=== PATIENT | male | born 1935 | race African-American/Black ===

== ENCOUNTER 2018-08-20 05:24 | Inpatient (IN) | payer OTHER ==
[2018-08-20] MEDS: ETOMIDATE 20 MG INJ IV (05:25)
[2018-08-20] MEDS: ROCURONIUM 50 MG INJ IV (05:27)
[2018-08-20] MEDS: PROPOFOL 100 ML IV ×2 (05:32→05:55)
[2018-08-20 05:45] LABS: WHITE BLOOD COUNT 6.6 10^3/ul (4.8-10.8)
[2018-08-20 05:45] LABS: ABNORMAL IP MESSAGE 1; HEMATOCRIT 50.9 % (42.0-52.0); HEMOGLOBIN 16.2 g/dl (14.0-18.0); MEAN CORPUSCULAR HEMOGLOBIN 29.3 pg (29.0-33.0); MEAN CORPUSCULAR HGB CONC 31.8 g/dl (32.0-37.0); MEAN CORPUSCULAR VOLUME 92.2 fl (82.0-101.0); MEAN PLATELET VOLUME 12.1 fl (7.4-10.4); PLATELET COUNT 122 10^3/UL (140-415); POSITIVE DIFF @See below; RED BLOOD COUNT 5.52 10^6/ul (4.70-6.10)
[2018-08-20 05:51] LABS: ADD MAN DIFF? YES
[2018-08-20] MEDS: SODIUM CHLORIDE 0.9% 1L BAG IV* (05:51)
[2018-08-20] MEDS: SOD CHLORIDE 0.9% 1,000 ML IV (05:52)
[2018-08-20] MEDS: CEFEPIME 2GM/50 ML (PMX) 50 ML IVPB ×2 (05:54→13:19)
[2018-08-20] MEDS: FENTAnyl 50 MCG/ML VIAL IV (06:03)
[2018-08-20] MEDS: FENTAnyl (DRIP) 1000 mcg/100mL 100 ML IV ×2 (06:04→18:00)
[2018-08-20] MEDS: VANCOMYCIN 1 GM (PMX) 250 ML IVPB (06:05)
[2018-08-20 06:08] LABS: ALANINE AMINOTRANSFERASE 8 IU/L (13-69); ALBUMIN 3.8 g/dl (3.3-4.9); ALBUMIN/GLOBULIN RATIO 0.97; ALKALINE PHOSPHATASE 100 IU/L (42-121); ANION GAP 19 (5-13); ASPARTATE AMINO TRANSFERASE 24 IU/L (15-46); BILIRUBIN,INDIRECT 0.5 mg/dl (0-1.1); BILIRUBIN,TOTAL 0.5 mg/dl (0.2-1.3); BLOOD UREA NITROGEN 91 mg/dl (7-20); CARBON DIOXIDE 28 mmol/L (21-31); CHLORIDE 113 mmol/L (97-110); CREATININE 1.81 mg/dl (0.61-1.24); POTASSIUM 4.3 mmol/L (3.5-5.1); SODIUM 160 mmol/L (135-144); TOTAL PROTEIN 7.7 g/dl (6.1-8.1)
[2018-08-20 06:11] LABS: AADO2 Arterial 475.5 mmHg (7.0-24.0); Allen Test ACCEPTAB; Arterial Base Excess -1.7 mmol/L (-3.0-3); Arterial Blood Gas Oxygen Sat 98.9 mmHG (95.0-100.0); Arterial COHb 0.3 % (0.0-3.0); Arterial Fraction of Oxyhgb 98.3 % (93.0-99.0); Arterial MetHb 0.3 % (0.0-1.5); Arterial pCO2 39.2 mmhg (35-45); INR 1.41; MODE VENT - AC; PROTIME 17.4 Sec (11.9-14.9); PT RATIO 1.4; Site Left Radial
[2018-08-20 06:12] LABS: GLUCOSE 492 mg/dl (70-220); PARTIAL THROMBOPLASTIN TIME 26.8 Sec (23.0-35.0)
[2018-08-20 06:21] LABS: TROPONIN-I 0.051 ng/ml (0.000-0.120)
[2018-08-20] MEDS ORDERED: NALOXONE 2 MG SYG (07:00)
[2018-08-20 07:04] LABS: ANISOCYTOSIS 1+ (0-0); BAND NEUTROPHILS #M 0.3 10^3/ul (0.0-0.6); BAND NEUTROPHILS % (M) 5 % (0-4); GIANT THROMBO% (M) 5 % (0-0); LYMPHOCYTES #M 0.8 10^3/ul (0.8-2.9); LYMPHOCYTES % (M) 13 % (15-51); MICROCYTOSIS 1+ (0-0); MONOCYTE #M 1.3 10^3/ul (0.3-0.9); MONOCYTES % (M) 21 % (0-11); PLATELET ESTIMATE DECREASED; POLYCHROMASIA 2+ (0-0); SEGMENTED NEUTROPHILS (M) % 61 % (39-77); SMUDGE%M 3 % (0-0)
[2018-08-20 08:29] LABS: LACTIC ACID 2.6 mmol/L (0.5-2.0)
[2018-08-20 08:31] LABS: PHOSPHORUS 3.9 mg/dl (2.5-4.9)
[2018-08-20 08:31] LABS: MAGNESIUM 3.1 mg/dl (1.7-2.5)
[2018-08-20] MEDS ORDERED: ONDANSETRON 4 MG INJ IV (11:00)
[2018-08-20 11:09] LABS: LACTIC ACID 2.6 mmol/L (0.5-2.0)
[2018-08-20] MEDS ORDERED: ACCU-CHEK XX (11:30)
[2018-08-20] MEDS ORDERED: GLUCOSE GEL 15 GRAM TUBE BUCCAL (11:30)
[2018-08-20] MEDS ORDERED: GLUCAGON 1 MG INJ IM (11:30)
[2018-08-20] MEDS ORDERED: VANCOMYCIN IV PER PHARMACY XX (11:30)
[2018-08-20] MEDS ORDERED: DEXTROSE 50% 50 ML SYRINGE IV ×4 (11:30)
[2018-08-20] MEDS ORDERED: GLUCOSE GEL 15 GRAM TUBE PO ×2 (11:30)
[2018-08-20] MEDS: 1/2 NS + KCL 20 MEQ 1,000 ML IV ×2 (13:21→20:51)
[2018-08-20] MEDS: INSULIN HUMAN REGULAR 100 UNIT in SOD CHLORIDE 0.9% 99 ML IV (13:29)
[2018-08-20] MEDS: VANCOMYCIN 750 MG (PMX) 250 ML IVPB (13:45)
[2018-08-20] MEDS: FAMOTIDINE 20 MG INJ IV (13:45)
[2018-08-20] MEDS: HEPARIN 5,000 UNIT/1 ML VIAL SC ×2 (13:56→21:04)
[2018-08-20] MEDS: ASPIRIN 81 MG TAB NGT (14:03)
[2018-08-20] MEDS: LACTATED RINGER'S 1,000 ML IV (15:40)
[2018-08-20 17:15] LABS: LACTIC ACID 3.9 mmol/L (0.5-2.0)
[2018-08-21] MEDS: 1/2 NS + KCL 20 MEQ 1,000 ML IV ×3 (00:14→19:59)
[2018-08-21 04:41] LABS: AADO2 Arterial 152.4 mmHg (7.0-24.0); Allen Test ACCEPTAB; Arterial Base Excess -2.3 mmol/L (-3.0-3); Arterial Blood Gas Oxygen Sat 96.5 mmHG (95.0-100.0); Arterial COHb 0.3 % (0.0-3.0); Arterial Fraction of Oxyhgb 95.8 % (93.0-99.0); Arterial HCO3 22.6 mmol/L (22.0-26.0); Arterial MetHb 0.4 % (0.0-1.5); Arterial pCO2 39.6 mmhg (35-45); MODE VENT - AC; Site Left Radial
[2018-08-21 05:35] LABS: ABNORMAL IP MESSAGE 1; HEMATOCRIT 44.9 % (42.0-52.0); HEMOGLOBIN 14.2 g/dl (14.0-18.0); MEAN CORPUSCULAR HEMOGLOBIN 29.3 pg (29.0-33.0); MEAN CORPUSCULAR HGB CONC 31.6 g/dl (32.0-37.0); MEAN CORPUSCULAR VOLUME 92.8 fl (82.0-101.0); MEAN PLATELET VOLUME 12.4 fl (7.4-10.4); PLATELET COUNT 96 10^3/UL (140-415); POSITIVE DIFF @See below; RED BLOOD COUNT 4.84 10^6/ul (4.70-6.10); RED CELL DISTRIBUTION WIDTH 12.4 % (11.5-14.5)
[2018-08-21 05:35] LABS: WHITE BLOOD COUNT 8.6 10^3/ul (4.8-10.8)
[2018-08-21 05:38] LABS: ADD MAN DIFF? YES
[2018-08-21 05:56] LABS: ANION GAP 8 (5-13); BLOOD UREA NITROGEN 84 mg/dl (7-20); CALCIUM 9.1 mg/dl (8.4-10.2); CARBON DIOXIDE 25 mmol/L (21-31); CHLORIDE 121 mmol/L (97-110); CREATININE 1.59 mg/dl (0.61-1.24); GLUCOSE 138 mg/dl (70-220); POTASSIUM 4.3 mmol/L (3.5-5.1); SODIUM 154 mmol/L (135-144)
[2018-08-21 06:03] LABS: LACTIC ACID 2.1 mmol/L (0.5-2.0)
[2018-08-21] MEDS: FENTAnyl (DRIP) 1000 mcg/100mL 100 ML IV (06:06)
[2018-08-21 06:24] LABS: HEMOGLOBIN A1C 12.9 % (0-5.9)
[2018-08-21 07:36] LABS: BAND NEUTROPHILS #M 1.8 10^3/ul (0.0-0.6); BAND NEUTROPHILS % (M) 22 % (0-4); BASOPHILS % (M) 1 % (0-2); BURR CELLS 1+ (0-0); GIANT THROMBO% (M) 4 % (0-0); LYMPHOCYTES #M 0.5 10^3/ul (0.8-2.9); LYMPHOCYTES % (M) 6 % (15-51); METAMYELOCYTES #M 0.2 10^3/ul (0.0-0.0); METAMYELOCYTES %M 3 % (0-0); MONOCYTE #M 0.6 10^3/ul (0.3-0.9); MONOCYTES % (M) 8 % (0-11); MYELOCYTES % (M) 1 % (0-0); PLATELET ESTIMATE DECREASED; POIKILOCYTOSIS 1+ (0-0); PROMYELOCYTES % (M) 1 % (0-0); SEG NEUT #M 5.1 10^3/ul (1.6-7.5); SEGMENTED NEUTROPHILS (M) % 58 % (39-77); SMUDGE%M 5 % (0-0)
[2018-08-21] MEDS ORDERED: GLUCOSE GEL 15 GRAM TUBE PO ×2 (08:30)
[2018-08-21] MEDS ORDERED: GLUCAGON 1 MG INJ IM (08:30)
[2018-08-21] MEDS ORDERED: DEXTROSE 50% 50 ML SYRINGE IV ×2 (08:30)
[2018-08-21] MEDS ORDERED: GLUCOSE GEL 15 GRAM TUBE BUCCAL (08:30)
[2018-08-21] MEDS: ASPIRIN 81 MG TAB NGT (09:00)
[2018-08-21] MEDS: INSULIN ASPART [NOVOLOG] 3 ML PEN SC ×4 (09:00→22:00)
[2018-08-21] MEDS: INSULIN GLARGINE [LANTus] (100 UNITS/ML) SYG SC (09:53)
[2018-08-21] MEDS: HEPARIN 5,000 UNIT/1 ML VIAL SC ×2 (09:54→21:58)
[2018-08-21] MEDS: FAMOTIDINE 20 MG INJ IV (12:03)
[2018-08-22] MEDS: INSULIN ASPART [NOVOLOG] 3 ML PEN SC ×6 (01:18→21:01)
[2018-08-22] MEDS: FENTAnyl (DRIP) 1000 mcg/100mL 100 ML IV (02:13)
[2018-08-22] MEDS: CEFEPIME 2GM/50 ML (PMX) 50 ML IVPB (05:05)
[2018-08-22] MEDS: 1/2 NS + KCL 20 MEQ 1,000 ML IV (05:18)
[2018-08-22] MEDS: INSULIN GLARGINE [LANTus] (100 UNITS/ML) SYG SC (09:16)
[2018-08-22] MEDS: HEPARIN 5,000 UNIT/1 ML VIAL SC ×2 (09:17→21:03)
[2018-08-22] MEDS: ASPIRIN 81 MG TAB NGT (09:26)
[2018-08-22] MEDS: FAMOTIDINE 20 MG INJ IV (13:01)
[2018-08-22 17:42] LABS: AADO2 Arterial 148.5 mmHg (7.0-24.0); Allen Test ACCEPTAB; Arterial Base Excess -2.5 mmol/L (-3.0-3); Arterial Blood Gas Oxygen Sat 96.9 mmHG (95.0-100.0); Arterial COHb 0.3 % (0.0-3.0); Arterial Fraction of Oxyhgb 96.4 % (93.0-99.0); Arterial HCO3 21.7 mmol/L (22.0-26.0); Arterial MetHb 0.2 % (0.0-1.5); Arterial pCO2 35.7 mmhg (35-45); Blood Gas PS 10; MODE VENT - CPAP; Site Left Radial
[2018-08-23] MEDS: INSULIN ASPART [NOVOLOG] 3 ML PEN SC ×6 (01:36→21:15)
[2018-08-23 05:12] LABS: ADD MAN DIFF? NO
[2018-08-23 05:16] LABS: BASOPHIL # 0.1 10^3/ul (0.0-0.1); BASOPHILS % 0.7 % (0.0-2.0); EOSINOPHILS % 0.1 % (0.0-7.0); HEMATOCRIT 40.2 % (42.0-52.0); HEMOGLOBIN 12.2 g/dl (14.0-18.0); LYMPHOCYTES # 0.6 10^3/ul (0.8-2.9); LYMPHOCYTES % 5.9 % (15.0-51.0); MEAN CORPUSCULAR HGB CONC 30.3 g/dl (32.0-37.0); MEAN CORPUSCULAR VOLUME 95.5 fl (82.0-101.0); MEAN PLATELET VOLUME 12.7 fl (7.4-10.4); MONOCYTE # 1.1 10^3/ul (0.3-0.9); MONOCYTES % 10.1 % (0.0-11.0); NEUTROPHIL # 8.7 10^3/ul (1.6-7.5); PLATELET COUNT 105 10^3/UL (140-415); POSITIVE DIFF @See below; RED BLOOD COUNT 4.21 10^6/ul (4.70-6.10); RED CELL DISTRIBUTION WIDTH 12.9 % (11.5-14.5)
[2018-08-23 05:16] LABS: WHITE BLOOD COUNT 10.6 10^3/ul (4.8-10.8)
[2018-08-23 05:22] LABS: NEUTROPHILS % 81.4 % (39.0-77.0)
[2018-08-23] MEDS: CEFEPIME 2GM/50 ML (PMX) 50 ML IVPB (05:35)
[2018-08-23 05:39] LABS: AADO2 Arterial 98.7 mmHg (7.0-24.0); Arterial Base Excess -1.7 mmol/L (-3.0-3); Arterial Blood Gas Oxygen Sat 93.6 mmHG (95.0-100.0); Arterial COHb 0.3 % (0.0-3.0); Arterial HCO3 22.9 mmol/L (22.0-26.0); Arterial MetHb 0.3 % (0.0-1.5); Arterial pCO2 38.5 mmhg (35-45); MODE NASAL CANNULA; Site LB
[2018-08-23 05:50] LABS: ANION GAP 5 (5-13); BLOOD UREA NITROGEN 56 mg/dl (7-20); CARBON DIOXIDE 25 mmol/L (21-31); CHLORIDE 123 mmol/L (97-110); CREATININE 1.21 mg/dl (0.61-1.24); GLUCOSE 248 mg/dl (70-220); PHOSPHORUS 2.8 mg/dl (2.5-4.9); POTASSIUM 4.6 mmol/L (3.5-5.1); SODIUM 153 mmol/L (135-144)
[2018-08-23 07:09] LABS: PROCALCITONIN 2.85 ng/mL (0.00-0.10)
[2018-08-23] MEDS: ASPIRIN 81 MG TAB NGT (09:47)
[2018-08-23] MEDS: INSULIN GLARGINE [LANTus] (100 UNITS/ML) SYG SC (09:52)
[2018-08-23] MEDS: HEPARIN 5,000 UNIT/1 ML VIAL SC ×2 (09:53→21:14)
[2018-08-23] MEDS: FAMOTIDINE 20 MG INJ IV (12:01)
[2018-08-23] MEDS: BALSAM PERU/CASTOR OIL 60 GM TUBE TOP (21:12)
[2018-08-23] MEDS: ACETAMINOPHEN 650MG/20.3ML CUP NGT (21:12)
[2018-08-24] MEDS ORDERED: IBUPROFEN 600 MG TAB NGT (00:30)
[2018-08-24] MEDS: ACETAMINOPHEN 650MG/20.3ML CUP NGT ×2 (02:08→21:25)
[2018-08-24] MEDS: IBUPROFEN LIQUID (PED) 20 MG/ML CUP PO (02:10)
[2018-08-24] MEDS: INSULIN ASPART [NOVOLOG] 3 ML PEN SC ×6 (02:16→20:14)
[2018-08-24] MEDS: CEFEPIME 2GM/50 ML (PMX) 50 ML IVPB (06:03)
[2018-08-24] MEDS: ASCORBIC ACID 250 MG TAB NGT (09:29)
[2018-08-24] MEDS: ASPIRIN 81 MG TAB NGT (09:29)
[2018-08-24] MEDS: ZINC SULFATE 220 MG CAP NGT (09:29)
[2018-08-24] MEDS: FOLIC ACID 1 MG TAB NGT (09:29)
[2018-08-24] MEDS: HEPARIN 5,000 UNIT/1 ML VIAL SC ×2 (09:30→20:07)
[2018-08-24] MEDS: BALSAM PERU/CASTOR OIL 60 GM TUBE TOP ×2 (09:34→21:00)
[2018-08-24] MEDS: MULTIVITAMINS 30 ML CUP NGT (11:00)
[2018-08-24] MEDS: FAMOTIDINE 20 MG INJ IV (11:00)
[2018-08-24] MEDS: INSULIN GLARGINE [LANTus] (100 UNITS/ML) SYG SC (11:02)
[2018-08-25] MEDS: SOD CHLORIDE 0.9% 1,000 ML IV ×2 (00:29→14:39)
[2018-08-25 00:37] LABS: LACTIC ACID 2.6 mmol/L (0.5-2.0)
[2018-08-25 00:40] LABS: ANION GAP 6 (5-13); BLOOD UREA NITROGEN 39 mg/dl (7-20); CALCIUM 9.4 mg/dl (8.4-10.2); CARBON DIOXIDE 26 mmol/L (21-31); CHLORIDE 126 mmol/L (97-110); CREATININE 1.07 mg/dl (0.61-1.24); GLUCOSE 192 mg/dl (70-220); POTASSIUM 4.1 mmol/L (3.5-5.1); SODIUM 158 mmol/L (135-144)
[2018-08-25] MEDS: INSULIN ASPART [NOVOLOG] 3 ML PEN SC ×6 (01:00→21:27)
[2018-08-25 01:31] LABS: ABNORMAL IP MESSAGE 1; HEMATOCRIT 43.6 % (42.0-52.0); HEMOGLOBIN 13.7 g/dl (14.0-18.0); MEAN CORPUSCULAR HEMOGLOBIN 29.3 pg (29.0-33.0); MEAN CORPUSCULAR HGB CONC 31.4 g/dl (32.0-37.0); MEAN CORPUSCULAR VOLUME 93.2 fl (82.0-101.0); MEAN PLATELET VOLUME 13.7 fl (7.4-10.4); NUCLEATED RED BLOOD CELLS% 0.3 /100WBC (0.0-0.0); PLATELET COUNT 136 10^3/UL (140-415); POSITIVE DIFF @See below; RED BLOOD COUNT 4.68 10^6/ul (4.70-6.10); RED CELL DISTRIBUTION WIDTH 13.4 % (11.5-14.5)
[2018-08-25 01:31] LABS: WHITE BLOOD COUNT 14.5 10^3/ul (4.8-10.8)
[2018-08-25 01:34] LABS: ADD MAN DIFF? YES
[2018-08-25 01:59] LABS: BAND NEUTROPHILS #M 1.8 10^3/ul (0.0-0.6); BAND NEUTROPHILS % (M) 13 % (0-4); BURR CELLS 1+ (0-0); ECHINOCYTOSIS 1+ (0-0); ERYTHROBLAST% (NRBC) (M) 1 % (0-0); LYMPHOCYTES #M 0.7 10^3/ul (0.8-2.9); LYMPHOCYTES % (M) 5 % (15-51); MONOCYTE #M 1.3 10^3/ul (0.3-0.9); MONOCYTES % (M) 9 % (0-11); MYELOCYTES #M 0.1 10^3/ul (0.0-0.0); MYELOCYTES % (M) 1 % (0-0); PLATELET ESTIMATE NORMAL; POIKILOCYTOSIS 3+ (0-0); POLYCHROMASIA 2+ (0-0); SEG NEUT #M 10.7 10^3/ul (1.6-7.5); SEGMENTED NEUTROPHILS (M) % 72 % (39-77); SMUDGE%M 25 % (0-0)
[2018-08-25] MEDS: CEFEPIME 2GM/50 ML (PMX) 50 ML IVPB (05:13)
[2018-08-25 05:59] LABS: INR 1.53; PROTIME 18.5 Sec (11.9-14.9); PT RATIO 1.4
[2018-08-25] MEDS: ASCORBIC ACID 250 MG TAB NGT (10:34)
[2018-08-25] MEDS: FOLIC ACID 1 MG TAB NGT (10:34)
[2018-08-25] MEDS: ASPIRIN 81 MG TAB NGT (10:34)
[2018-08-25] MEDS: ZINC SULFATE 220 MG CAP NGT (10:35)
[2018-08-25] MEDS: MULTIVITAMINS 30 ML CUP NGT (10:35)
[2018-08-25] MEDS: FAMOTIDINE 20 MG TAB NGT (10:35)
[2018-08-25] MEDS: BALSAM PERU/CASTOR OIL 60 GM TUBE TOP ×2 (10:35→20:59)
[2018-08-25] MEDS: HEPARIN 5,000 UNIT/1 ML VIAL SC ×2 (10:40→21:26)
[2018-08-25] MEDS ORDERED: VANCOMYCIN IV PER PHARMACY XX (11:30)
[2018-08-25] MEDS: ACETAMINOPHEN 650MG/20.3ML CUP NGT (12:13)
[2018-08-25] MEDS: INSULIN GLARGINE [LANTus] (100 UNITS/ML) SYG SC (12:17)
[2018-08-25] MEDS: PIPER-TAZO 3.375 GM IV (PMX) 100 ML IVPB ×2 (13:13→20:59)
[2018-08-25] MEDS: VANCOMYCIN HCL 1.5 GM in SOD CHLORIDE 0.9% 250 ML IVPB (14:39)
[2018-08-25] MEDS ORDERED: CEFAZOLIN 1 GM/50 ML (PMX) 50 ML IVPB (16:00)
[2018-08-25 16:51] LABS: ADD UMIC YES; UR ASCORBIC ACID 20 mg/dL (NEGATIVE); UR BILIRUBIN (Dip) NEGATIVE (NEGATIVE); UR BLOOD (Dip) 3+ mg/dL (NEGATIVE); UR CLARITY CLOUDY (CLEAR); UR COLOR AMBER (YELLOW); UR GLUCOSE (Dip) 3+ mg/dL (NEGATIVE); UR GRANULAR CAST MODERATE /HPF (NONE SEEN); UR KETONES (Dip) NEGATIVE (NEGATIVE); UR LEUKOCYTE ESTERASE (Dip) NEGATIVE Leu/ul (NEGATIVE); UR NITRITE (Dip) NEGATIVE (NEGATIVE); UR RBC 5 /HPF (0-5); UR SPECIFIC GRAVITY (Dip) 1.029 (1.003-1.030); UR TOTAL PROTEIN (Dip) 2+ mg/dl (NEGATIVE); UR UROBILINOGEN (Dip) NEGATIVE (NEGATIVE); UR WBC 8 /HPF (0-5)
[2018-08-25] MEDS: ALBUTEROL/IPRATROPIUM (NEB) 3 ML AMP HHN ×2 (20:37)
[2018-08-26 00:20] LABS: AADO2 Arterial 549.9 mmHg (7.0-24.0); Allen Test ACCEPTAB; Arterial Base Excess 0 mmol/L (-3.0-3); Arterial Blood Gas Oxygen Sat 98.6 mmHG (95.0-100.0); Arterial COHb 0.3 % (0.0-3.0); Arterial HCO3 22.3 mmol/L (22.0-26.0); Arterial MetHb 0.3 % (0.0-1.5); Arterial pCO2 29.8 mmhg (35-45); MODE HFNC; Site Right Radial
[2018-08-26] MEDS: ALBUTEROL/IPRATROPIUM (NEB) 3 ML AMP HHN ×7 (01:57→21:00)
[2018-08-26] MEDS: INSULIN ASPART [NOVOLOG] 3 ML PEN SC ×6 (02:12→21:07)
[2018-08-26] MEDS: VANCOMYCIN 750 MG (PMX) 250 ML IVPB (02:14)
[2018-08-26] MEDS: SOD CHLORIDE 0.9% 1,000 ML IV (02:14)
[2018-08-26] MEDS: PIPER-TAZO 3.375 GM IV (PMX) 100 ML IVPB ×3 (05:30→21:02)
[2018-08-26 08:29] LABS: ADD MAN DIFF? NO
[2018-08-26 08:39] LABS: ABNORMAL IP MESSAGE 1; BASOPHIL # 0.1 10^3/ul (0.0-0.1); BASOPHILS % 0.6 % (0.0-2.0); HEMATOCRIT 42.5 % (42.0-52.0); HEMOGLOBIN 13.4 g/dl (14.0-18.0); LYMPHOCYTES % 5.7 % (15.0-51.0); MEAN CORPUSCULAR HEMOGLOBIN 29.2 pg (29.0-33.0); MEAN CORPUSCULAR HGB CONC 31.5 g/dl (32.0-37.0); MEAN CORPUSCULAR VOLUME 92.6 fl (82.0-101.0); MEAN PLATELET VOLUME 14.1 fl (7.4-10.4); MONOCYTE # 0.4 10^3/ul (0.3-0.9); MONOCYTES % 2.5 % (0.0-11.0); NEUTROPHIL # 14.9 10^3/ul (1.6-7.5); NEUTROPHILS % 90.1 % (39.0-77.0); NUCLEATED RED BLOOD CELLS # 0.1 10^3/ul (0.0-0.0); NUCLEATED RED BLOOD CELLS% 0.3 /100WBC (0.0-0.0); PLATELET COUNT 126 10^3/UL (140-415); POSITIVE DIFF @See below; RED BLOOD COUNT 4.59 10^6/ul (4.70-6.10); RED CELL DISTRIBUTION WIDTH 14.2 % (11.5-14.5)
[2018-08-26 08:39] LABS: WHITE BLOOD COUNT 16.6 10^3/ul (4.8-10.8)
[2018-08-26] MEDS: BALSAM PERU/CASTOR OIL 60 GM TUBE TOP ×4 (08:52→21:09)
[2018-08-26] MEDS: MULTIVITAMINS 30 ML CUP NGT (08:52)
[2018-08-26] MEDS: FOLIC ACID 1 MG TAB NGT (08:52)
[2018-08-26] MEDS: ZINC SULFATE 220 MG CAP NGT (08:52)
[2018-08-26] MEDS: ASCORBIC ACID 250 MG TAB NGT (08:52)
[2018-08-26] MEDS: FAMOTIDINE 20 MG TAB NGT (08:52)
[2018-08-26] MEDS: ASPIRIN 81 MG TAB NGT (08:52)
[2018-08-26] MEDS: INSULIN GLARGINE [LANTus] (100 UNITS/ML) SYG SC (09:07)
[2018-08-26] MEDS: HEPARIN 5,000 UNIT/1 ML VIAL SC ×2 (09:07→21:00)
[2018-08-26 09:08] LABS: ANION GAP 11 (5-13); BLOOD UREA NITROGEN 52 mg/dl (7-20); CALCIUM 8.1 mg/dl (8.4-10.2); CARBON DIOXIDE 22 mmol/L (21-31); CHLORIDE 132 mmol/L (97-110); CREATININE 1.42 mg/dl (0.61-1.24); GLUCOSE 194 mg/dl (70-220); POTASSIUM 3.1 mmol/L (3.5-5.1)
[2018-08-26 09:36] LABS: AADO2 Arterial 348.2 mmHg (7.0-24.0); Allen Test ACCEPTAB; Arterial Base Excess -1.2 mmol/L (-3.0-3); Arterial Blood Gas Oxygen Sat 96.6 mmHG (95.0-100.0); Arterial COHb 0.3 % (0.0-3.0); Arterial HCO3 20.7 mmol/L (22.0-26.0); Arterial MetHb 0.3 % (0.0-1.5); Arterial pCO2 27.4 mmhg (35-45); MODE HFNC; SODIUM 165 mmol/L (135-144); Site Right Radial
[2018-08-26] MEDS: DEXTROSE 5% 1,000 ML IV ×2 (10:25→20:00)
[2018-08-26] MEDS: POTASSIUM CHLORIDE 20 MEQ POWDER FOR ORAL SOLN NGT ×2 (10:26→21:22)
[2018-08-26 10:50] LABS: ANISOCYTOSIS 1+ (0-0); BAND NEUTROPHILS #M 1.9 10^3/ul (0.0-0.6); BAND NEUTROPHILS % (M) 12 % (0-4); BURR CELLS 2+ (0-0); GIANT THROMBO% (M) 1 % (0-0); LYMPHOCYTES #M 1.3 10^3/ul (0.8-2.9); LYMPHOCYTES % (M) 8 % (15-51); MONOCYTE #M 0.1 10^3/ul (0.3-0.9); MONOCYTES % (M) 1 % (0-11); MYELOCYTES #M 0.1 10^3/ul (0.0-0.0); MYELOCYTES % (M) 1 % (0-0); PLATELET ESTIMATE DECREASED; POIKILOCYTOSIS 3+ (0-0); SEG NEUT #M 13.3 10^3/ul (1.6-7.5); SEGMENTED NEUTROPHILS (M) % 78 % (39-77); SMUDGE%M 10 % (0-0); TARGET CELLS 1+ (0-0)
[2018-08-26] MEDS: COLLAGENASE 5 GM (UD JAR) TOP ×2 (13:13→20:59)
[2018-08-26] MEDS: ACETAMINOPHEN 650MG/20.3ML CUP NGT (17:18)
[2018-08-26 21:55] LABS: AADO2 Arterial 649.5 mmHg (7.0-24.0); Allen Test ACCEPTAB; Arterial Blood Gas Oxygen Sat 68.9 mmHG (95.0-100.0); Arterial COHb 0 % (0.0-3.0); Arterial Fraction of Oxyhgb 68.8 % (93.0-99.0); Arterial HCO3 21.5 mmol/L (22.0-26.0); Arterial MetHb 0.1 % (0.0-1.5); Arterial pCO2 29.9 mmhg (35-45); MODE MASK - NRB; Site Right Radial
[2018-08-26 21:57] LABS: AMMONIA 18 umol/l (9-30)
[2018-08-26 22:16] LABS: B-TYPE NATRIURETIC PEPTIDE 870 PG/ML (0-450)
[2018-08-26] MEDS: morphine (DRIP) 100 MG/100 ML 100 ML IV (23:58)
[2018-08-27] MEDS: ALBUTEROL/IPRATROPIUM (NEB) 3 ML AMP HHN ×6 (00:56→20:57)
[2018-08-27] MEDS: DEXTROSE 5% 1,000 ML IV ×4 (01:15→22:50)
[2018-08-27] MEDS: VANCOMYCIN 1 GM 250 ML IVPB (02:29)
[2018-08-27] MEDS: NACL 0.9% 3 ML SYG IV (02:30)
[2018-08-27] MEDS: PIPER-TAZO 3.375 GM IV (PMX) 100 ML IVPB ×3 (06:06→21:40)
[2018-08-27] MEDS: BALSAM PERU/CASTOR OIL 60 GM TUBE TOP ×5 (09:00→21:40)
[2018-08-27] MEDS: COLLAGENASE 5 GM (UD JAR) TOP ×2 (09:00→21:39)
[2018-08-27] MEDS: FAMOTIDINE 20 MG TAB NGT (09:00)
[2018-08-27] MEDS: ZINC SULFATE 220 MG CAP NGT (09:00)
[2018-08-27] MEDS: ASPIRIN 81 MG TAB NGT (09:00)
[2018-08-27] MEDS: MULTIVITAMINS 30 ML CUP NGT ×2 (09:00→13:10)
[2018-08-27] MEDS: ASCORBIC ACID 250 MG TAB NGT (09:00)
[2018-08-27] MEDS: FOLIC ACID 1 MG TAB NGT (09:00)
[2018-08-27] MEDS: HEPARIN 5,000 UNIT/1 ML VIAL SC ×2 (09:01→21:42)
[2018-08-28] MEDS: ALBUTEROL/IPRATROPIUM (NEB) 3 ML AMP HHN ×6 (01:32→20:21)
[2018-08-28] MEDS: VANCOMYCIN 1 GM 250 ML IVPB (02:13)
[2018-08-28] MEDS: DEXTROSE 5% 1,000 ML IV ×2 (02:20→20:51)
[2018-08-28 06:00] LABS: BLOOD UREA NITROGEN 37 mg/dl (7-20)
[2018-08-28 06:00] LABS: CREATININE 1.48 mg/dl (0.61-1.24)
[2018-08-28] MEDS: PIPER-TAZO 3.375 GM IV (PMX) 100 ML IVPB ×3 (06:08→22:27)
[2018-08-28] MEDS: HEPARIN 5,000 UNIT/1 ML VIAL SC (09:00)
[2018-08-28] MEDS: MULTIVITAMINS 30 ML CUP NGT (11:18)
[2018-08-28] MEDS: ZINC SULFATE 220 MG CAP NGT (11:19)
[2018-08-28] MEDS: ASCORBIC ACID 250 MG TAB NGT (11:20)
[2018-08-28] MEDS: ASPIRIN 81 MG TAB NGT (11:21)
[2018-08-28] MEDS: FOLIC ACID 1 MG TAB NGT (11:21)
[2018-08-28] MEDS: FAMOTIDINE 20 MG TAB NGT (11:21)
[2018-08-28] MEDS: COLLAGENASE 5 GM (UD JAR) TOP ×2 (16:24→20:53)
[2018-08-28] MEDS ORDERED: VANCOMYCIN HCL 1.25 GM in SOD CHLORIDE 0.9% 250 ML IVPB (23:00)
[2018-08-28] MEDS: morphine (DRIP) 100 MG/100 ML 100 ML IV (23:01)
[2018-08-28] MEDS: VANCOMYCIN HCL 1.5 GM in SOD CHLORIDE 0.9% 250 ML IVPB (23:12)
[2018-08-29] MEDS: ALBUTEROL/IPRATROPIUM (NEB) 3 ML AMP HHN ×6 (00:18→20:16)
[2018-08-29] MEDS: ACETAMINOPHEN 650MG/20.3ML CUP NGT (02:32)
[2018-08-29] MEDS: PIPER-TAZO 3.375 GM IV (PMX) 100 ML IVPB ×3 (05:40→21:14)
[2018-08-29] MEDS: ZINC SULFATE 220 MG CAP NGT (09:10)
[2018-08-29] MEDS: ASPIRIN 81 MG TAB NGT (09:10)
[2018-08-29] MEDS: COLLAGENASE 5 GM (UD JAR) TOP ×2 (09:10→20:50)
[2018-08-29] MEDS: MULTIVITAMINS 30 ML CUP NGT (09:10)
[2018-08-29] MEDS: FAMOTIDINE 20 MG TAB NGT (09:10)
[2018-08-29] MEDS: ASCORBIC ACID 250 MG TAB NGT (09:10)
[2018-08-29] MEDS: FOLIC ACID 1 MG TAB NGT (09:10)
[2018-08-29] MEDS: DEXTROSE 5% 1,000 ML IV (15:43)
[2018-08-29] MEDS: VANCOMYCIN HCL 1.5 GM in SOD CHLORIDE 0.9% 250 ML IVPB (22:45)
[2018-08-30] MEDS: ALBUTEROL/IPRATROPIUM (NEB) 3 ML AMP HHN ×6 (00:36→20:00)
[2018-08-30] MEDS: ACETAMINOPHEN 650MG/20.3ML CUP NGT ×2 (03:09→09:49)
[2018-08-30] MEDS: DEXTROSE 5% 1,000 ML IV (04:10)
[2018-08-30] MEDS: PIPER-TAZO 3.375 GM IV (PMX) 100 ML IVPB (05:15)
[2018-08-30 05:42] LABS: WHITE BLOOD COUNT 12.6 10^3/ul (4.8-10.8)
[2018-08-30 05:42] LABS: ABNORMAL IP MESSAGE 1; HEMATOCRIT 35.7 % (42.0-52.0); HEMOGLOBIN 11.1 g/dl (14.0-18.0); MEAN CORPUSCULAR HEMOGLOBIN 29.4 pg (29.0-33.0); MEAN CORPUSCULAR HGB CONC 31.1 g/dl (32.0-37.0); MEAN CORPUSCULAR VOLUME 94.4 fl (82.0-101.0); MEAN PLATELET VOLUME 14.2 fl (7.4-10.4); PLATELET COUNT 145 10^3/UL (140-415); POSITIVE DIFF @See below; RED BLOOD COUNT 3.78 10^6/ul (4.70-6.10); RED CELL DISTRIBUTION WIDTH 15.3 % (11.5-14.5)
[2018-08-30 06:03] LABS: ADD MAN DIFF? YES
[2018-08-30 06:15] LABS: ANION GAP 10 (5-13); BLOOD UREA NITROGEN 35 mg/dl (7-20); CARBON DIOXIDE 25 mmol/L (21-31); CHLORIDE 130 mmol/L (97-110); CREATININE 1.66 mg/dl (0.61-1.24); GLUCOSE 331 mg/dl (70-220)
[2018-08-30 06:23] LABS: SODIUM 165 mmol/L (135-144)
[2018-08-30 06:25] LABS: POTASSIUM 2.7 mmol/L (3.5-5.1)
[2018-08-30] MEDS: ZINC SULFATE 220 MG CAP NGT (09:49)
[2018-08-30] MEDS: MULTIVITAMINS 30 ML CUP NGT (09:49)
[2018-08-30] MEDS: ASPIRIN 81 MG TAB NGT (09:49)
[2018-08-30] MEDS: FAMOTIDINE 20 MG TAB NGT (09:50)
[2018-08-30] MEDS: COLLAGENASE 5 GM (UD JAR) TOP (09:50)
[2018-08-30] MEDS: FOLIC ACID 1 MG TAB NGT (09:50)
[2018-08-30] MEDS: ASCORBIC ACID 250 MG TAB NGT (09:50)
[2018-08-30 11:09] LABS: ANISOCYTOSIS 1+ (0-0); BAND NEUTROPHILS #M 2.2 10^3/ul (0.0-0.6); BAND NEUTROPHILS % (M) 18 % (0-4); BURR CELLS 1+ (0-0); EOSINOPHILS % (M) 3 % (0-7); GIANT THROMBO% (M) 7 % (0-0); LYMPHOCYTES #M 0.6 10^3/ul (0.8-2.9); LYMPHOCYTES % (M) 5 % (15-51); MONOCYTE #M 0.2 10^3/ul (0.3-0.9); MONOCYTES % (M) 2 % (0-11); OVALOCYTES 1+ (0-0); PLATELET ESTIMATE NORMAL; PROMYELOCYTES #M 0.1 10^3/ul (0-0); PROMYELOCYTES % (M) 1 % (0-0); SEG NEUT #M 9.2 10^3/ul (1.6-7.5); SEGMENTED NEUTROPHILS (M) % 71 % (39-77); SMUDGE%M 22 % (0-0)
[2018-08-30] MEDS: morphine 4 MG/ML VIAL IV ×2 (17:52→23:58)
[2018-08-31] MEDS: ALBUTEROL/IPRATROPIUM (NEB) 3 ML AMP HHN ×6 (01:42→21:52)
[2018-08-31] MEDS: morphine 4 MG/ML VIAL IV (05:37)
[2018-08-31] MEDS: morphine (DRIP) 100 MG/100 ML 100 ML IV (13:08)
[2018-09-01] MEDS: ALBUTEROL/IPRATROPIUM (NEB) 3 ML AMP HHN ×6 (00:33→20:24)
[2018-09-01] MEDS: DIMETHICONE STICK TOP (14:34)
[2018-09-01] MEDS: ARTIFICIAL TEARS 15 ML OPH BOTH EYES (14:34)
[2018-09-02] MEDS: ALBUTEROL/IPRATROPIUM (NEB) 3 ML AMP HHN ×6 (01:22→20:00)
[2018-09-02] MEDS: ARTIFICIAL TEARS 15 ML OPH BOTH EYES (05:30)
[2018-09-02] MEDS: DIMETHICONE STICK TOP (05:31)
[2018-09-02] MEDS: morphine (DRIP) 100 MG/100 ML 100 ML IV (11:44)
== END 2018-09-02 23:10 | disposition expired | DRG 208 ==
LOC: PP2 08-23 15:11 → TEL 08-25 08:38 → MS1 08-26 23:36 → E/R 05:24 → ICU 05:40
PROVIDERS: Internal Medicine
PROC: 0BH17EZ Insertion of Endotracheal Airway into Trachea, Via Natural or Artificial Opening (ICD-10-PCS; principal; 2018-08-20)
PROC: 5A1945Z Respiratory Ventilation, 24-96 Consecutive Hours (ICD-10-PCS; 2018-08-20)
PROC: 02HV33Z Insertion of Infusion Device into Superior Vena Cava, Percutaneous Approach (ICD-10-PCS; 2018-08-20)
DX: T17.820A Food in other parts of respiratory tract causing asphyxiation, initial encounter (principal); J96.01 Acute respiratory failure with hypoxia; J69.0 Pneumonitis due to inhalation of food and vomit; G92 Toxic encephalopathy; A41.9 Sepsis, unspecified organism; E87.0 Hyperosmolality and hypernatremia; N17.9 Acute kidney failure, unspecified; E87.2 Acidosis; F02.81 Dementia in other diseases classified elsewhere, unspecified severity, with behavioral disturbance; R64 Cachexia; I69.951 Hemiplegia and hemiparesis following unspecified cerebrovascular disease affecting right dominant side; I13.0 Hypertensive heart and chronic kidney disease with heart failure and stage 1 through stage 4 chronic kidney disease, or unspecified chronic kidney disease; D69.6 Thrombocytopenia, unspecified; E11.65 Type 2 diabetes mellitus with hyperglycemia; E11.22 Type 2 diabetes mellitus with diabetic chronic kidney disease; E87.6 Hypokalemia; E86.0 Dehydration; G30.9 Alzheimer's disease, unspecified; I50.9 Heart failure, unspecified; I48.91 Unspecified atrial fibrillation; K76.9 Liver disease, unspecified; N18.3 Chronic kidney disease, stage 3 (moderate); R00.0 Tachycardia, unspecified; R13.10 Dysphagia, unspecified; Z66 Do not resuscitate; Z95.1 Presence of aortocoronary bypass graft; Z68.23 Body mass index [BMI] 23.0-23.9, adult; Z79.4 Long term (current) use of insulin; Z79.82 Long term (current) use of aspirin
CPT/HCPCS: 31500; 36415; 36600; 71045; 80048; 80053; 80202; 81001; 82140; 82565; 82803; 82962; 83036; 83605; 83735; 83880; 84100; 84145; 84484; 84520; 85025; 85610; 85730; 87040-91; 87081; 93005; 94002; 94003; 94640; 94664; 94770; 96374; 96375; 99285-25